=== PATIENT | male | born 2000 | race African-American/Black ===

== ENCOUNTER 2020-11-10 02:03 | Emergency (ER) | payer BC, SELFPAY ==
[2020-11-10 02:07] VITALS: BP 105/72; PULSE 98; RESP 18; TEMP 36.9; O2SAT 99; BMI 23.5
[2020-11-10 02:30] VITALS: BP 112/65; PULSE 97
--- NOTE | 2020-11-10 02:49 | [facility].EDSKAF ---
ED Disposition Clinical Impression: Pyogenic granuloma Disposition: Home, Self-Care Condition on Discharge: Good Instructions: DI for Skin Abscess Additional Instructions: see pcp today and call your podiatry for follow up Referrals: Provider,Referral, [Primary Care Provider] - - Critical Care Critical Care Time: No Attestation: On 11/10/20, the high probability of a clinically significant, sudden or life threatening deterioration of the following system(s) required my full and direct attention, intervention and personal management. The time I documented below is in addition to time spent performing reported procedures but includes the following listed in this critical care notation. Medical Decision Making - Medical Records Medical records reviewed: Yes: I reviewed the patient's medical records. - Alex Inquiry Pt receiving controlled substance: No Vital Signs: 11/10/20 02:07 11/10/20 02:30 Temperature 98.5 F Temperature Source Oral Pulse Rate 97 H Pulse Rate [Right] 98 H Respiratory Rate 18 Blood Pressure 112/65 Blood Pressure [Right Arm] 105/72 L Blood Pressure Mean 80 Blood Pressure Mean [Right Arm] 83 Blood Pressure Source [Right Arm] Automatic Cuff Blood Pressure Position [Right Arm] Supine 02 Sat by Pulse Oximetry 99 Oxygen Delivery Method Room Air Skin/Abscess/FB HPI - General Chief complaint: Skin/Abscess/Foreign Body Stated complaint: Foot infection Time Seen by Provider: 11/10/20 02:15 Mode of Arrival: EMS Source of Information: Patient, Parent(s), EMS, Medical Record Limitations: No Limitations Description of Symptoms (Recalled from ER Triage Doc. by RN): Pt had an ingrown toenail removed on left great toe in september by [facility] and he developed an abscess. Pt is to soak and redress toe everyday, during his dressing change today his toe started bleeding and was transported here via EMS. Bleeding controlled on arrival, dressing removed for assesment. - History of Present Illness HPI narrative: nail was trauma in september and then nail procedure and progressed to mass like changes lt great toe and has been followed by podiatry and had mri of foot and appt with dr celestin today for surg clearance - tonight had bleeding which did not stop at home with pressure - pt is to have surg on toe in about 2 weeks complaint: lesion Onset (ago): day(s) Tetanus up to date: unsure Location: L foot Severity: moderate Associated symptoms: denies other symptoms - Related Data Allergies Allergy/AdvReac Type Severity Reaction Status Date / Time No Known Allergies Allergy Verified 11/10/20 02:47 [facility] History - Hepatitis A Screen Drug use history?: No High risk sexual behaviors?: No History of sexually transmitted infection?: No Currently employed?: No Childcare worker?: No Do you have indoor plumbing?: Yes Do you have electricity?: Yes Attestation statement:: This patient has been screened for Hepatitis A risk factors. I have reviewed the patient's past medical history: Yes Medical History: Denies:: Diabetes Mellitus Type 1, Diabetes Mellitus Type 2 - Social History Alcohol Intake: never Occupational Status: unemployed ROS Obtained: Yes All systems reviewed & no additional complaints - Constitutional Constitutional: Denies fever(s) - Eyes Eyes: Denies change in vision - ENT Ears, Nose, Mouth, and Throat: Denies sore throat - Cardiovascular Cardiovascular: Denies chest pain - Respiratory Respiratory: Denies shortness of breath - Gastrointestinal Gastrointestingal: Denies: abdominal pain - Genitourinary Male Genitourinary: Denies hematuria - Musculoskeletal Musculoskeletal: Reports as per HPI, Reports joint pain, Reports joint swelling, Reports limited range of motion, Reports other (bleeding ) - Integumentary/Breasts Skin/Breast: Denies rash - Neurologic Neurologic: Denies focal weakness, Denies headache(s), Denies seizure-like
--- NOTE | 2020-11-10 02:51 | PC.NURSE ---
Dr Loya used 9 Silver Nitrate applicators to cauterize left great toe bleed. Toe was dressed with a non-stick dressing and wrapped with gauze. non-slip sock was placed over foot. Pt tolerated well.
[2020-11-10 02:58] VITALS: BP 111/79; PULSE 80; RESP 18; TEMP 36.9
== END 2020-11-10 03:03 | disposition home or self-care (01) ==
PROVIDERS: Emergency Provider Emergency Medicine; PCP Internal Medicine Adolescent Medicine
DX: L98.0 Pyogenic granuloma (principal)
CPT/HCPCS: 17250; 99281